=== PATIENT | female | born 1960 | race Caucasian/White ===

== ENCOUNTER 2021-01-13 05:21 | Observation (INO) ==
--- NOTE | 2020-12-23 11:47 | PAT Medication Instructions ---
Medication Instructions Date of Service December 23, 2020 Home Medications atorvastatin 10 mg tablet 10 mg PO QAM citalopram 40 mg tablet 40 mg PO QAM ibuprofen 100 mg tablet 400 mg PO Q8H PRN ASK your surgeon for instructions ibuprofen 100 mg tablet 400 mg PO Q8H PRN Take morning of surgery With a small sip of water, OTHERWISE NOTHING TO EAT OR DRINK AFTER MIDNIGHT: atorvastatin 10 mg tablet 10 mg PO QAM citalopram 40 mg tablet 40 mg PO QAM Other Notes If you have any questions please call us at [phone] or [phone] or [phone] or [phone]
--- NOTE | 2020-12-24 15:40 | Anesthesiology Consultation ---
Date of Service December 24, 2020 Assessment & Plan (1) Encounter for pre-operative examination: Chart Review Chart Review: Acceptable Risk for Surgery (pending surgeon ordered PCP clearance and preop Covid testing results ) and Patient seen in Pre Admission Testing Awaiting surgeon ordered PCP clearance 01/06/21 Per PAT appt on 12/24/20, patient denies any recent travel. No known Covid positive contacts or Covid related symptoms. No known Covid infection in the past 90 days. Pt is fully vaccinated for Covid. Preop Covid testing scheduled 01/11/21= will await results. Educated on importance of self quarantining, social distancing and wearing mask in public both for the patient after Covid testing done Teaching & Discussion Pre-Anesthesia Teaching/Discussion Notes: Instructed NPO after midnight before surgery,except medications with 15 cc of water. Medication instructions provided according to the PAT guidelines. History Surgery Operation Date: 01/13/21 07:00 Proposed Procedures p Right Total Knee Arthroplasty - Lucas Farias MD Height/Weight Height: 5 ft 4 in Weight: 108 kg Allergies Allergy/AdvReac Type Severity Reaction Status Date / Time Sulfa (Sulfonamide Allergy Mild Rash Verified 12/23/20 07:45 Antibiotics) Medications Home Medications Medication Instructions Recorded Confirmed Last Taken atorvastatin 10 mg tablet 10 mg PO QAM 12/23/20 12/23/20 Unknown citalopram 40 mg tablet 40 mg PO QAM 12/23/20 12/23/20 Unknown ibuprofen 100 mg tablet 400 mg PO Q8H PRN 12/23/20 12/23/20 Unknown Past Medical History Medical History Arthritis Depression History of kidney stones NO INTERVENTIONS No current issues Hyperlipidemia Sleep apnea CPAP Exercise / Class Metabolic Activity II 4-5 Yardwork/Stairs/Walk up hill (one flight stairs - no chest pain or SOB ) Past Family History Family History Other No significant family history Past Surgical History Surgical History Family history of reaction to anesthesia MOTHER-SLOW TO WAKE UP History of colonoscopy History of tonsillectomy and adenoidectomy [place] teeth removed Past Anesthesia History No Hx of Anesthesia Complications and No Family Hx of Anesthesia Complications (with exception to mother- slow to wake- just groggy- no reintubuatin or ICU stay ) History of PONV No Hx of PONV and No Hx of Motion Sickness Social History Smoking Status: Never smoker Hx Alcohol Use: Yes alcohol intake frequency: holidays/special occasions only Hx Substance Use: No substance use type: does not use Review of Systems Patient denies chest pain, shortness of breath, dyspnea on exertion, reflux, cough, wheezing, palpitations. No hx of seizures, stroke, MA. No hx of blood clots or blood transfusions Physical Exam Vital Signs VITALS BP 130/80 P 72 TEMP 99.0 SP02 96% RESP 16 Constitutional no acute distress ENMT Mouth: no TMJ clicking Thyromental Distance: > or= 3.5 Finger Breadths Mallampati Class: II Neck neck extension not limited Respiratory normal respiratory effort; no respiratory distress Auscultation: lungs clear to auscultation bilaterally; no wheezes Cardiovascular Rate/Rhythm: regular rate and regular rhythm Heart Sounds: no murmur Vessels: no carotid bruit Musculoskeletal Spine: no pain with cervical ROM Extremities: extremities normal to inspection Psychiatric Orientation: alert Lab Results Anesthesia Preop Results Results Anesthesia Widget: WBC 5.55 K/uL (4.8-10.8) 12/24/20 Hgb 11.6 g/dL (12.0-16.0) L 12/24/20 Hct 35.0 % (37-47) L 12/24/20 Plt 268 K/uL (130-400) 12/24/20 Na 139 mmol/L (136-145) 12/24/20 K 4.1 mmol/L (3.5-5.1) 12/24/20 Cl 108 mmol/L (98-107) H 12/24/20 CO2 26 mmol/L (21-32) 12/24/20 BUN 15 mg/dl (7-18) 12/24/20 Creat 0.78 mg/dl (0.6-1.2) 12/24/20 Glucose Level 99 mg/dl (70-99) 12/24/20 PT 10.1 Seconds (9.0-12.0) 12/24/20 PTT 26.9 Seconds (21.0-31.0) 12/24/20 INR 1.0 (0.9-1.1) 12/24/20 Urine Color Yellow 12/24/20 Urine Appearance Clear (Clear) 12/24/20 Urine pH 5.5 (4.5-7.5) 12/24/20 Urine Specific [place] 1.020 (1.000-1.030) 12/24/20 Urine Protein Negative (Negative) 12/24/20 Urine Glucose (UA) Negative (Negative) 12/24/20 Urine Ketones Negative (Negative) 12/24/20 Urine Blood Negative (Negative) 12/24/20 Urine Nitrite Negative (Negative) 12/24/20 Urine Bilirubin Negative (Negative) 12/24/20 Urine Urobilinogen Negative (Negative) 12/24/20 Urine Leukocyte Esterase Negative (Negative) 12/24/20 Blood Type O Positive 12/24/20 Antibody Screen NEGATIVE 12/24/20 Lab Comments: Will send labs to PCP to address during upcoming PCP appt; did inform surgeon's office of anemia Testing Electrocardiogram Date: 12/24/20 Findings: + NSR @ (64bpm) Normal EKG per cardio. Chest X-Ray Date: 12/24/20 Borderline enlargement of cardiac silhouette which may be accentuated by the low lung volumes. Otherwise, no acute process within the chest (Will forward to PCP office)
--- NOTE | 2020-12-31 10:41 | History & Physical Report ---
Date of Service December 31, 2020 Assessment & Plan (1) Right knee DJD: Plan: Postoperative prescriptions for Percocet and Coumadin will be provided at discharge from the hospital. Anticipate discharge to home with home health services. She already has access to a walker. She has an appointment to see her PCP for medical clearance next week. Preoperative lab work, EKG, and chest x-ray were ordered today. She will meet with PAT today. The patient is aware of the COVID-19 risks associated with surgery. She is currently asymptomatic of any COVID-19 symptoms. She will obtain nasal swab testing 2 days prior to surgery. PDMP was checked and there are no concerning findings. History of Present Illness Chief Complaint: Right knee pain Primary Care Provider: NO PCP This 60-year-old female presents for her preoperative history and physical. She is scheduled to undergo a right knee total knee arthroplasty on 01/13/2021. The patient has had right knee pain for several years. It has become worse with time. She previously used steroid shots and viscosupplementation injections with reasonable relief. Over the last 6 months, they have not helped. She is now getting night pain that is keeping her from sleep. She denies any numbness or tingling. No catching or locking. She does note some bowing of her knee. Pain is worse with weightbearing. It is affecting her ADLs. She has also tried oral pain medication as well as activity modification without lasting improvement. Preoperative imaging has been obtained. Allergies Allergy/AdvReac Type Severity Reaction Status Date / Time Sulfa (Sulfonamide Allergy Mild Rash Verified 12/23/20 07:45 Antibiotics) Home Medications Medication Instructions Recorded Confirmed Type atorvastatin 10 mg tablet 10 mg PO QAM 12/23/20 12/23/20 History citalopram 40 mg tablet 40 mg PO QAM 12/23/20 12/23/20 History ibuprofen 100 mg tablet 400 mg PO Q8H PRN 12/23/20 12/23/20 History Past Med/Surg History Medical History Arthritis Depression History of kidney stones NO INTERVENTIONS No current issues Hyperlipidemia Sleep apnea CPAP Surgical History Family history of reaction to anesthesia MOTHER-SLOW TO WAKE UP History of colonoscopy History of tonsillectomy and adenoidectomy [place] teeth removed Family History Other No significant family history Social History Smoking Status: Never smoker Second Hand Exposure: No; Hx Alcohol Use: Yes Hx Substance Use: No Preferred Language: Kazakh Pocket Machine Operator Required: No Beliefs That Will Affect Care: None Current Living Situation: Spouse Feels Safe at Home: Yes Assistive Devices: CPAP and Glasses Review of Systems Review of Systems: All systems reviewed & are unremarkable except as noted in HPI & below Physical Exam Physical Exam: Vitals: Height 156 cm, weight 108 kilograms, BMI 44.5, temperature 36.4, BP 156/78, pulse 95, O2 sat 98% on room air. General: Well-developed, well-nourished middle-aged white female in no acute distress. Sitting in a chair. Alert and oriented. Skin: Warm and dry with good turgor. No rashes or lesions. No ecchymosis or erythema. HEENT: Normocephalic, atraumatic. Eyes: PERRLA, EOMI. Nares patent bilaterally without turbinate enlargement. Oropharynx without erythema or exud ate, no lesions noted. Uvula midline, oral mucosa moist. Fair dentition. Fillings and caps are noted. Heart: RRR, no MGR. Lungs: Clear to auscultation bilaterally, no crackles, rhonchi or wheezing, good air movement. Abdomen: Obese, bowel sounds present x4, soft, nontender. No organomegaly. No masses. Musculoskeletal: Right knee evaluation reveals slight varus stance. She lacks just a few degrees of terminal extension. Flexion to greater than 110 degrees. Strength is 5/5 with fair quad tone. No defect in the patellar tendon or quadriceps tendon. Stable collateral ligaments. Ambulating today with a mildly antalgic gait. She has focal discomfort with palpation over the medial joint line. No lateral joint line discomfort with palpation today. There is palpable crepitus with motion. Neurologic: Gross sensation is intact across both lower extremities by soft touch. Peripheral pulses are 2+. Results & Data Results & Data ([facility]) Diagnostic Findings Radiographic imaging previously obtained shows end-stage DJD, worst in the medial compartment. Periarticular osteophytes, subchondral sclerosis, and joint space narrowing are all present.
[2021-01-13] MEDS ORDERED: ceFAZolin 2000MG 2,000 MG/15 ML SYR IV SCH (06:00)
[2021-01-13] MEDS ORDERED: LR 500ML BOLUS, THEN 15ML/HR IV SCH (06:00)
[2021-01-13] MEDS ORDERED: ROPIVACAINE 0.5% HCL/PF 150 MG, BUPIVACAINE 0.75% MPF 20 ML, EPINEPHrine 0.15 MG, Ketor... INFIL SCH (06:00)
[2021-01-13] MEDS ORDERED: TRANEXAMIC ACID 1,000 MG **IV Pre-op IV SCH (06:00)
[2021-01-13] MEDS ORDERED: LR 60ML/HR IV SCH (06:00)
--- NOTE | 2021-01-13 06:03 | History & Physical Bridge Note ---
Date of Service January 13, 2021 History & Physical Bridge Note I have examined the patient, reviewed the History & Physical and in the interval since the performance of the History & Physical I have noted the following changes of clinical significance:consent obtained/site verified/covid screen negative. no changes noted
[2021-01-13] MEDS ORDERED: EPINEPHrine INJ 1 MG/ML AMP ONE (06:23)
[2021-01-13] MEDS ORDERED: BUPIVACAINE 0.5 % 5 MG/1 ML PF 10ML VIAL ONE (06:24)
[2021-01-13] MEDS ORDERED: BUPIVACAINE 0.25% 30 ML VIAL ONE ×2 (06:24→06:26)
[2021-01-13] MEDS ORDERED: ORTHO JOINT ANESTHETIC ONE (06:34)
[2021-01-13] MEDS ORDERED: MIDAZOLAM HCL 1 MG/ML 2ML VIAL ONE (06:40)
[2021-01-13] MEDS ORDERED: fentaNYL citrate 100 MCG/2 ML VIAL ONE (06:40)
[2021-01-13] MEDS ORDERED: ONDANSETRON INJ 2 MG/ML 2 ML VIAL IV PRN ×2 (06:48→10:28)
[2021-01-13] MEDS ORDERED: ATROPINE SULFATE 0.1 MG/ML 10ML SYR IV PRN (06:48)
[2021-01-13] MEDS ORDERED: fentaNYL citrate 100 MCG/2 ML VIAL IV PRN (06:48)
[2021-01-13] MEDS ORDERED: ePHEDrine sulfate 50 MG/ML AMP IV PRN (06:48)
[2021-01-13] MEDS ORDERED: HYDROmorphone INJ 2 MG/ML SYR/VIAL IV PRN (06:48)
[2021-01-13] MEDS ORDERED: ONDANSETRON INJ 2 MG/ML 2 ML VIAL ONE (07:24)
[2021-01-13] MEDS ORDERED: PROPOFOL IV EMULSION 10 MG/ML 20 ML VIAL IV ONE (07:24)
--- NOTE | 2021-01-13 08:41 | Operative Report ---
Post Operative Report Pre & Post Diagnosis Operation Date: 01/13/21 07:00 Pre-Op Diagnosis: Right Knee Osteoarthritis Post-Op Diagnosis: Right Knee Osteoarthritis I identified the patient and participated in the time-out.: Yes Procedure Operation Date: 01/13/21 07:00 Actual Procedures p Right Total Knee Arthroplasty, Cemented(Right) - Lucas Farias MD Surgeon MIKE Farias MD Automatic Lathe Setter Dieter/Emma WALSH Estimated Blood Loss 40 Findings Consistent with Post-Op Diagnosis see operative report Specimens see operative report Drains none Complications none Disposition Accompanied Patient To Recovery: Yes Indications This 60-year-old female presented to the office with complaints of persisting right knee pain. She had tried conservative care measures without improvement. She elected to proceed with surgical intervention after being educated about potential risks and outcomes. Preoperative imaging was obtained. Description of Procedure Patient was administered a spinal anesthetic and then taken to the operating room where she was given sedation. She was prepped and draped in the usual sterile fashion. Please see Dr. Farias's operative report for specifics of the procedure. I was present for the entire case from initial patient positioning through final wound closure. Assistance was provided in tissue retraction, hemostasis, trial implant placement, final implant placement, and final wound closure. Patient was taken to the recovery room in satisfactory condition. I attest to the content of the Intraoperative Record and any orders documented therein. Any exceptions are noted below.
--- NOTE | 2021-01-13 08:44 | Operative Report ---
Post Operative Report Pre & Post Diagnosis Operation Date: 01/13/21 07:00 Pre-Op Diagnosis: Right Knee Osteoarthritis Post-Op Diagnosis: Right Knee Osteoarthritis I identified the patient and participated in the time-out.: Yes Procedure Operation Date: 01/13/21 07:00 Actual Procedures p Right Total Knee Arthroplasty, Cemented(Right) - Lucas Farias MD Surgeon W MD Dinora Inspector Shells Dieter/Emma WALSH Estimated Blood Loss 40 Findings Consistent with Post-Op Diagnosis see Dr Farias note Specimens no specimens Description of Procedure see Dr. Farias note I attest to the content of the Intraoperative Record and any orders documented therein. Any exceptions are noted below.
--- NOTE | 2021-01-13 09:36 | Operative Report (OR) ---
DATE OF PROCEDURE: 01/13/2021 SURGEON: Lucas Farias MD. PANEL BUILDER: Cisco Garcias MD. SECOND LOIN TRIMMER: Jacky Carter PA-C. PREOPERATIVE DIAGNOSIS: Osteoarthritis with flexion varus deformity, right knee. POSTOPERATIVE DIAGNOSIS: Osteoarthritis with flexion varus deformity, right knee. OPERATION PERFORMED: Cemented right total knee replacement. SUMMARY OF IMPLANTS: Size 3 right femur, size 3 mobile bearing tray, size 3 x 10 mm posterior crucia te substituting insert, 38 patella, 2 bags of [place] G cement. ESTIMATED BLOOD LOSS: 40 mL. CRYSTALLOID: Per anesthesia. PATHOLOGY: Pending on bone. DVT prophylaxis per protocol. PERIOPERATIVE SITUATION: Medically cleared female with intractable knee pain. Understands the risks and consequences, please see consent and wants to proceed with surgical treatment, total knee repla cement on the right. DESCRIPTION OF PROCEDURE: The patient was appropriately identified, site verified, consent verified. Antibiotics were confirmed as being given. The right lower extremity was prepped and draped in usu al routine fashion. Tourniquet was inflated to 300 mmHg after exsanguination of the limb with a rubb er Esmarch bandage for a total of 45 minutes. Midline exposure was utilized. Parapatellar arthrotom y performed. Synovectomy completed, osteophytes resected. Distal femur entered. Distal femur then resected 14 mm, proximal tibia 4 mm, the extension gap was excellent. The femur was sized to a 3, an d appropriate cutting block applied. The anterior, posterior, condylar and chamfer cuts were made. Flexion gap was checked, it was good. Some minor soft tissue debridement performed and then the post erior capsular injection made. Box cut was then made, and a size 3 fit well. The tibia was then bro ached and reamed to a size 3, and a 10 mm spacer placed and it was stable in all planes including mid range flexion. Patella tracked well. Patella was resected leaving 15 mm. A 38 button fit extremel y well. It tracked well. The rest of the Orthomix was then injected. All trial implants were then removed. The wound irrigated with Betadine Pulsavac, and then the permanent cemented in position, ti talita, femur, and patella in that sequence. After 12 minutes, the tourniquet deflated. Minor bleeding points were controlled with electrocautery. After 14 minutes, the knee was then inspected. The tri al spacer removed. No cement removal required. The wound was irrigated and the permanent liner seat ed. The knee reduced and then the knee closed at 40 degrees of flexion using #2 Vicryl, 2-0 Vicryl a nd stainless steel clips. Appropriate dressing applied. The patient was transferred to [facility] in satisfactory condition, having tolerated the procedure well. Job ID: [id number]
--- NOTE | 2021-01-13 09:50 | XRay Report ---
TWO VIEWS RIGHT KNEE CLINICAL HISTORY: Postoperative examination. FINDINGS: AP and crosstable lateral portable views of the right knee are obtained. A right knee arthr oplasty is in near anatomic alignment. There has been undersurface remodeling of the patella. No acut e fracture is seen. There are expected postoperative changes around the knee including skin clips, so ft tissue edema, and subcutaneous gas. IMPRESSION: Expected postoperative changes status post right knee arthroplasty. No acute fracture is seen. ACT 112: Negative or not required by law. Electronically signed by: Rodrigo Cooper M.D. 01/13/2021 9:49 AM
[2021-01-13] MEDS ORDERED: HYDROmorphone INJ 0.5 MG/0.5 ML SYR IV PRN (10:28)
[2021-01-13] MEDS ORDERED: bisacodyL 10 MG SUPP PR PRN (10:28)
[2021-01-13] MEDS ORDERED: NALOXONE HCL 0.4 MG/1 ML VIAL/CARP IV PRN (10:28)
[2021-01-13] MEDS ORDERED: oxyCODONE HCL IR 5 MG TAB (IMMEDIATE RELEASE) PO PRN (10:28)
[2021-01-13] MEDS ORDERED: diphenhydrAMINE 50 MG/ML VIAL IV PRN (10:28)
[2021-01-13] MEDS ORDERED: MAGNESIUM HYDROXIDE SUSP 30 ML UDC PO PRN (10:28)
[2021-01-13] MEDS ORDERED: METOCLOPRAMIDE HCL INJ 5 MG/ML 2 ML VIAL IV PRN (10:28)
[2021-01-13] MEDS ORDERED: SODIUM CHLORIDE 0.9% 1000ML 1,000 ML IV SCH (10:28)
[2021-01-13] MEDS ORDERED: ALUMINUM/MAGNESIUM SUSP 30 ML UDC PO PRN (10:28)
--- NOTE | 2021-01-13 10:28 | Post Operative Brief Note ---
Immediate Post Op Note v1 Date of Surgery January 13, 2021 Pre & Post Diagnosis Operation Date: 01/13/21 07:00 Pre-Op Diagnosis: Right Knee Osteoarthritis Post-Op Diagnosis: Right Knee Osteoarthritis I identified the patient and participated in the time-out.: Yes Procedure Operation Date: 01/13/21 07:00 Actual Procedures p Right Total Knee Arthroplasty, Cemented(Right) - Lucas Farias MD Surgeon Lucas Farias MD Automotive Upholsterer Dieter/Emma WALSH Estimated Blood Loss 40 Findings Consistent with Post-Op Diagnosis
--- NOTE | 2021-01-13 10:57 | Progress Notes ---
DATE OF SERVICE: 01/13/2021 Postop check status post right total knee replacement. The patient did well, has no issues. Vital s igns are stable. She is afebrile. She denies chest pain, shortness of breath, fever, chills, nausea , vomiting or headache. Exam is still limited by her block. Postop x-rays look excellent. ASSESSMENT: Doing well. Continue postoperative care pathway. Discharge home tomorrow if she does w ell overnight. Job ID: [id number]
--- NOTE | 2021-01-13 11:13 | Discharge Summary (DS) ---
DATE OF ADMISSION: 01/13/2021 DATE OF DISCHARGE: If she does well overnight, 01/14/2021. CHIEF COMPLAINT: Right knee pain. HISTORY OF PRESENT ILLNESS: The patient underwent elective right total knee replacement. HOSPITAL COURSE: Has been uneventful. PAST MEDICAL HISTORY: Remarkable for arthritis, depression, kidney stones, hyperlipidemia, sleep field producer ea, uses CPAP. PREADMISSION MEDICATIONS: Include atorvastatin 10 mg q.a.m., citalopram 40 mg q.a.m., p.r.n. ibuprof en. ALLERGIES: SHE IS ALLERGIC TO SULFA. PAST SURGICAL HISTORY: Remarkable for colonoscopies, tonsillectomies, wisdom teeth. SOCIAL HISTORY: Reveals she does not smoke. Alcohol social only. Speaks Latvian. Lives with the spo use. Uses CPAP and glasses. REVIEW OF SYSTEMS: Noncontributory. Postoperative x-rays look excellent. ASSESSMENT: Doing well status post right total knee replacement. Continue postoperative care pathwa y. Discharge tomorrow if she does well overnight. Deep venous thrombosis prophylaxis per protocol. Job ID: [id number]
--- NOTE | 2021-01-13 11:27 | Anesthesiology Progress Note ---
Date of Service January 13, 2021 Anesthesia Post Procedure Vital Signs Vital Signs: Temp Pulse Pulse Pulse Resp BP Pulse Ox 01/13/21 10:25 36.7 C 66 18 132/74 98 01/13/21 10:10 66 20 137/56 L 92 01/13/21 10:00 64 20 123/58 L 94 01/13/21 09:49 36.6 C 64 19 132/56 L 94 01/13/21 09:40 63 19 137/61 93 01/13/21 09:35 59 L 19 128/65 95 01/13/21 09:25 74 14 118/75 96 01/13/21 09:15 64 20 134/55 L 93 01/13/21 09:05 65 17 131/77 98 01/13/21 08:55 68 18 122/60 95 01/13/21 08:45 66 21 127/57 L 100 01/13/21 08:38 36 C L 72 14 128/48 L 97 01/13/21 05:50 37.1 C 65 18 150/55 H 97 Pain Intensity Bilateral Knee: Pain Intensity: 1 Transfer of Care Handoff Completed per policy Notes Mental Status: alert / awake / arousable and participated in evaluation Patient Amnestic to Procedure: Yes Nausea / Vomiting: adequately controlled Pain: adequately controlled Airway Patency, RR, SpO2: stable & adequate BP & HR: stable & adequate Hydration State: stable & adequate Anesthetic Complications: no major complications apparent and Pt Satisfied with anesthetic care
[2021-01-13] MEDS: DOCUSATE SODIUM 100 MG CAP PO SCH ×2 (12:57→21:23)
[2021-01-13] MEDS: MULTIVITAMIN TAB PO SCH (12:57)
[2021-01-13] MEDS: ATORVASTATIN 10 MG TAB PO SCH (12:58)
[2021-01-13] MEDS: CITALOPRAM 40 MG TAB PO SCH (12:58)
[2021-01-13] MEDS: KETOROLAC 30 MG/ML VIAL IV SCH ×2 (12:59→18:26)
[2021-01-13] MEDS: ORTHO WARFARIN NOMOGRAM SCH (14:07)
[2021-01-13] MEDS: ACETAMINOPHEN 500 MG TAB PO SCH ×2 (14:26→21:23)
[2021-01-13] MEDS ORDERED: TRANEXAMIC ACID / 0.7% NACL 1,000 MG/100 ML BAG IV SCH (15:00)
[2021-01-13] MEDS ORDERED: WARFARIN SOD 5 MG TAB PO ONE (16:00)
[2021-01-13] MEDS: ceFAZolin 2000MG 2,000 MG/15 ML SYR IV SCH (17:44)
[2021-01-13] MEDS: ASCORBIC ACID 500 MG TAB PO SCH (17:45)
[2021-01-13] MEDS: FERROUS GLUCONATE 324 MG TAB PO SCH (17:46)
[2021-01-13] MEDS ORDERED: SENNA 8.6 MG TAB PO SCH (21:00)
[2021-01-14] MEDS: ceFAZolin 2000MG 2,000 MG/15 ML SYR IV SCH (00:48)
[2021-01-14] MEDS: KETOROLAC 30 MG/ML VIAL IV SCH ×2 (00:48→05:34)
[2021-01-14] MEDS: ACETAMINOPHEN 500 MG TAB PO SCH (05:35)
[2021-01-14 06:27] LABS: Hematocrit (blood only) 32.5 % (37-47); Hemoglobin 10.7 g/dL (12.0-16.0); Mean Corpuscular Hemoglobin 30.2 pg (25-34); Mean Corpuscular Hgb Conc 32.9 g/dL (32-36); Mean Corpuscular Volume 91.8 fL (80-100); Mean Platelet Volume 10.9 fL (7.4-10.4); Platelet Count 259 K/uL (130-400); RDW Standard Deviation 44.2 fL (36.4-46.3); Red Blood Count 3.54 M/uL (4.2-5.4); White Blood Count 11.04 K/uL (4.8-10.8)
[2021-01-14 06:39] LABS: Prothrombin Time 10.4 Seconds (9.0-12.0)
[2021-01-14 06:53] LABS: BUN Creatinine Ratio 17.6 (10-20); Calcium 8.8 mg/dl (8.5-10.1); Creatinine Clr Calc Pharmacy 75.6 ml/min; Est GFR (African American) 76.3 ml/min; Est GFR (Non-African American) 65.9 ml/min; Potassium 3.9 mmol/L (3.5-5.1)
[2021-01-14] MEDS ORDERED: dexAMETHasone 10 MG in SYRINGE 0 ML IV SCH (08:00)
--- NOTE | 2021-01-14 08:56 | Progress Notes ---
SUBJECTIVE: Postop check, postoperative day #1, status post right total knee replacement. The patie nt is doing well, has no issues. She denies any chest pain, shortness of breath, fever, chills, naus ea, vomiting or headache. OBJECTIVE: VITAL SIGNS: Stable. She is afebrile. Neurovascular check femoral sciatic nerve is normal. Hematocrit stable at 32.5. LABORATORY DATA: INR 1.0. ASSESSMENT: Doing well. Discharged to home today. Coumadin 4 mg. Check a repeat INR on Monday. C ase management needs to see. Job ID: [id number]
--- NOTE | 2021-01-14 09:11 | Orthopedic Progress Note ---
Date of Service January 14, 2021 Assessment & Plan (1) Status post total right knee replacement using cement: Plan: Patient's dressing was changed this morning by me. OLGA hose were reapplied. She should keep this in place over the weekend, and may have home nursing change as needed on Monday. Ice and elevate the leg frequently to reduce pain and swelling. Continue ambulating using the walker Continue gentle motion several times per day Prescriptions for Coumadin and Percocet have been sent to her [facility] pharmacy. Written discharge instructions have been provided. Follow-up in the office in 2 weeks as scheduled for staple removal. Admission and Anticipated Discharge Date Admission Date: January 13, 2021 Subjective Patient is seen in her room this morning. She denies any discomfort at this point. She states she feels good. No numbness or tingling. She denies any chest pain, shortness of breath, nausea, vomiting, or abdominal pain. She has been out of bed to use the bathroom. She feels ready to go home. No other complaints. Review of Systems Review of Systems: Unchanged from yesterday. Physical Exam Physical Exam: General: Well-developed, well-nourished, middle-aged female, in no acute distress. Sitting in bed. Alert and oriented. Conversive. Skin: Warm and dry. No rashes. Postsurgical dressing is in place. Upon removal, there is scant drainage on her dressings. Whitney are intact. Wound edges are well approximated. She has no active bleeding. Expected postoperative edema. No ecchymosis. Musculoskeletal: Patient has intact motor function to her right leg. She is able to perform a straight leg raise. Full terminal extension. Flexion to 40 degrees easily. Intact motor function of her ankle. Neurologic: Gross sensation is intact across the right leg by soft touch. Peripheral pulses are 2+. Results & Data ([facility]) Vital Signs (Past 12 Hours) Vital Signs Temp Pulse Resp BP Pulse Ox 01/14/21 07:29 36.5 C 56 L 16 129/71 94 01/14/21 03:20 36.6 C 66 18 107/61 96 01/13/21 22:22 36.7 C 58 L 16 92/48 L 94 Laboratory Results Labs this morning show WBCs of 11.0. H&H of 10.7 and 32.5. Platelets 259,000. INR 1.0. Sodium 136, potassium 3.9, chloride 104, BUN 16, creatinine 0.93. Glucose 123.
[2021-01-14] MEDS: DOCUSATE SODIUM 100 MG CAP PO SCH (09:32)
[2021-01-14] MEDS: FERROUS GLUCONATE 324 MG TAB PO SCH (09:32)
[2021-01-14] MEDS: ATORVASTATIN 10 MG TAB PO SCH (09:32)
[2021-01-14] MEDS: ASCORBIC ACID 500 MG TAB PO SCH (09:32)
[2021-01-14] MEDS: CITALOPRAM 40 MG TAB PO SCH (09:33)
[2021-01-14] MEDS: MULTIVITAMIN TAB PO SCH (09:33)
[2021-01-14] MEDS ORDERED: WARFARIN SOD 5 MG TAB PO ONE (11:00)
[2021-01-14] MEDS: ORTHO WARFARIN NOMOGRAM SCH (12:41)
== END 2021-01-14 13:45 | disposition home health service (06) ==
LOC: ASU 05:21 → 3E 05:21

== ENCOUNTER 2023-06-14 06:26 | Observation (INO) ==
--- NOTE | 2023-05-25 11:27 | PAT Medication Instructions ---
Medication Instructions Date of Service May 25, 2023 Home Medications atorvastatin 10 mg tablet 10 mg PO QAM citalopram 40 mg tablet 40 mg PO QAM MEDICATION INSTRUCTIONS: Take morning of surgery With a small sip of water, OTHERWISE NOTHING TO EAT OR DRINK AFTER MIDNIGHT: atorvastatin 10 mg tablet 10 mg PO QAM citalopram 40 mg tablet 40 mg PO QAM Other Notes If you have any questions please call us at [phone] or [phone] or [phone] or [phone]
--- NOTE | 2023-06-05 12:09 | Anesthesiology Consultation ---
Date of Service June 05, 2023 Assessment & Plan (1) Encounter for pre-operative examination: - Infectious disease screening: Per assessment on 06/05/23: No known infectious disease contacts or current infectious disease symptoms (no infectious disease symptoms in past 10 days). No noted recent Covid positive test result. - Outpatient joint assessment: Pt currently scheduled for inpatient pathway. If surgeon requests review for outpatient joint pathway, patient is not recommended candidate for outpatient joint program from anesthesia standpoint based on available information. - S/P Right TKA (01/13/21): SAB at [facility] + regional at [facility] - Patient acceptable risk for surgery pending surgeon-ordered PCP preop evaluation (Tahmina KHAN/rosibel Cooney already done 05/30). Chart Review Chart Review: Patient seen in Pre Admission Testing Teaching & Discussion Pre-Anesthesia Teaching/Discussion Notes: Instructed NPO after midnight before surgery,except medications with 15 cc of water. Medication instructions provided according to the PAT guidelines. p History Surgery Operation Date: 06/14/23 08:50 Proposed Procedures p Left Total Knee Arthroplasty - Lucas Farias MD Height/Weight Height: 5 ft 4 in Weight: 113.5 kg Allergies Allergy/AdvReac Type Severity Reaction Status Date / Time Sulfa (Sulfonamide Allergy Mild Rash Verified 05/24/23 16:34 Antibiotics) Medications Home Medications Medication Instructions Recorded Confirmed Last Taken atorvastatin 10 mg tablet 10 mg PO QAM 12/23/20 05/24/23 01/12/21 08:00 citalopram 40 mg tablet 40 mg PO QAM 12/23/20 05/24/23 01/12/21 08:00 Past Medical History Medical History Arthritis History of kidney stones Depression Hyperlipidemia Sleep apnea CPAP (compliant) Exercise / Class Metabolic Activity III < 4 Walking/Shop/Light housework (one FS (no CP, mild SOB)) Past Family History Family History Mother Slow to wake up after anesthesia Other No significant family history Past Surgical History Surgical History History of total right knee replacement Right TKA (01/13/21): SAB at L3[facility] + regional at [facility] History of colonoscopy [place] teeth removed History of tonsillectomy and adenoidectomy Past Anesthesia History No Hx of Anesthesia Complications * Mother- Slow to wake History of PONV No Hx of PONV and No Hx of Motion Sickness Social History Smoking Status: Never smoker Do You Dip or Chew Tobacco: No Hx Alcohol Use: Yes alcohol intake frequency: holidays/special occasions only Hx Substance Use: No substance use type: does not use Review of Systems Patient denies chest pain, shortness of breath, fever, chills, cough, wheezing, palpitations. Physical Exam Vital Signs VITALS BP 132/82 P 63 TEMP 97.8 SP02 97%RA RESP 18 PHYSICAL Full cervical extension range of motion. Full TMJ range of motion. TMD 4 finger breaths Mallampati Score 3 Dentition: intact, + crowns Lungs: clear throughout to auscultation Cardiac: regular rate and rhythm, no murmurs noted Spine: normal Carotid arteries: negative bruit Extremities: no LE edema Thick neck Lab Results Anesthesia Preop Results Results Anesthesia Widget: WBC 5.02 K/ul (4.8-10.8) 06/05/23 Hgb 12.4 g/dl (12.0-16.0) 06/05/23 Hct 38.2 % (37.0-47.0) 06/05/23 Plt 237 K/uL (130-400) 06/05/23 Na 136 mmol/L (136-145) 06/05/23 K 4.5 mmol/L (3.5-5.1) 06/05/23 Cl 103 mmol/L (98-107) 06/05/23 CO2 27 mmol/L (21-32) 06/05/23 BUN 13 mg/dl (6-23) 06/05/23 Creat 0.87 mg/dl (0.6-1.2) 06/05/23 Glucose Level 95 mg/dl (70-99(Fasting)) 06/05/23 PT 10.6 Seconds (9.0-12.0) 06/05/23 PTT 27 Seconds (21-31) 06/05/23 INR 1.0 (0.9-1.1) 06/05/23 Urine Color Yellow 06/05/23 Urine Appearance Clear (Clear) 06/05/23 Urine pH 7.0 (4.5-7.5) 06/05/23 Urine Specific [place] 1.006 (1.000-1.030) 06/05/23 Urine Protein Negative (Negative) 06/05/23 Urine Glucose (UA) Negative (Negative) 06/05/23 Urine Ketones Negative (Negative) 06/05/23 Urine Blood Negative (Negative) 06/05/23 Urine Nitrite Negative (Negative) 06/05/23 Urine Bilirubin Negative (Negative) 06/05/23 Urine Urobilinogen Negative (Negative) 06/05/23 Urine Leukocyte Esterase Negative (Negative) 06/05/23 Blood Type O Positive 06/05/23 Antibody Screen NEGATIVE 06/05/23 Testing Electrocardiogram Date: 06/05/23 Findings: + NSR @ (61) Chest X-Ray Date: 06/05/23 FINDINGS: No lines and tubes are seen. The cardiomediastinal silhouette is normal. The lungs are clear. No evidence of pleural effusion or pneumothorax. IMPRESSION: No acute chest disease.
[~2023-06-14 06:26] MED LIST: LR 500ML BOLUS, THEN 15ML/HR IV SCH; LR 60ML/HR IV SCH; ROPIVACAINE 0.5% HCL/PF 246 MG, Ketorolac (*for OR use only*) 30 MG, EPINEPHrine 30MG/3... INFIL SCH; TRANEXAMIC ACID 1,000 MG **IV Pre-op IV SCH
[2023-06-14] MEDS ORDERED: ROPIVACAINE 0.5% 5 MG/ML 30 ML VIAL ONE (06:28)
[2023-06-14] MEDS ORDERED: BUPIVACAINE 0.5 % 5 MG/1 ML PF 10ML VIAL ONE (06:28)
--- NOTE | 2023-06-14 06:31 | History & Physical Bridge Note ---
Date of Service June 14, 2023 History & Physical Bridge Note I have examined the patient, reviewed the History & Physical and in the interval since the performance of the History & Physical I have noted the following changes of clinical significance: sire and consent verified.no changes noted
--- OUTSIDE RECORDS SUMMARY | 2023-06-14 06:33 | External Medical Summary | Continuity of Care Document ---
Author Name Unknown Organization [facility] [address] [place] [address] [address] [place] [phone] Encounter [facility] [id number] Date(s): 06/05/23 - 06/05/23 [facility] [address] [facility] [address] [facility] Sports Medicine [address] [place] [id number] Encounter Diagnosis Degenerative arthritis of left knee(Discharge Diagnosis) - 06/05/23 Discharge Disposition: Home or Self Care Attending Physician: JILLIAN Carter, Jacky Kearns Referring Physician: MD Dinora, Lucas Connolly Allergies, Adverse Reactions, Alerts Substance Reaction Severity Status sulfa drugs rash Active Medications amoxicillin 500 mg oral capsule Start: 09/28/22 13:08:00 EDT, See Instructions, Disp# 4 cap, Refills: 2, TAKE 4 CAPSULES BY MOUTH ONE HOUR BEFORE DENTAL PROCEDURES DIRECTED, Pharmacy: [id number] Start Date: 09/28/22 Status: Ordered atorvastatin 10 mg oral tablet TAKE 1 TABLET BY MOUTH EVERY DAY Start Date: 12/02/19 Status: Ordered citalopram 40 mg oral tablet TAKE 1 TABLET BY MOUTH EVERY DAY Start Date: 12/02/19 Status: Ordered Euflexxa 10 mg/mL intra-articular solution Start: 07/01/20 12:36:00 EST, 20 mg =, intra-articular, q7days, Disp# 12 mL, Refills: 0, 1 prefilled syringe to each knee bilaterally 1x weekly for 3 weeks. dx code M17.0, Note to Pharmacy: Please ship to doctors office; [address] [facility], [address]... Start Date: 07/01/20 Status: Ordered Mental Status 06/05/23 Barriers to Learning one year None evide nt Mandatory Health Literacy Documentation Yes Health Literacy Communication Barriers N ever Primary Language [place] Island[place] Problem List Condition Confirmation Course Effective Dates Status H ealth Status Informant Status post total right knee replacement Confirmed Active Bilateral primary osteoarthritis of knee Confirmed Active Diagnosis Diagnosis Type Effective Dates Health Status Clinical Service Informant Degenerative arthritis of left knee Discharge Diagnosis 06/05/23 Procedures Procedure Date Related Diagnosis Body Site Status Tonsil 1 Completed 1tonsil and addenoid surgery Vital Signs Most recent to oldest [Reference Range]: 1 Height 164 cm (06/05/23 10:56 AM) Patient Weight 110 kg (06/05/23 10:56 AM) Body Mass Index 40.9 kg/m2 (06/05/23 10:56 AM) Temperature [36.5-37.9 DegC] 36.6 DegC (06/05/23 10:56 AM) Heart Rate 80 bpm (06/05/23 10:56 AM) Blood Pressure 140/80mmHg (06/05/23 10:56 AM) Cuff Pulse Pressure 60 mmHg (06/05/23 10:56 AM) Social History Social History Type Response Smoking Status Never smoked cigaret kevon Sex Female Pre-OP H & P * JILLIAN Carter, Jacky D: PERFORM, MODIFY, MODIFY, MODIFY Event Display: Pre-OP H & P Authored Date: [id number] PRE-OPERATIVE HISTORY AND PHYSICAL Name: HIRAL CASTELLON Patient Number: [id number] : 1960 Date of Service: 06/05/2023 PRE-OP Diagnosis: Left knee DJD Planned Procedure: Left total knee arthroplasty Chief Complaint: Left knee pain History of Present Illness (including history relevant to procedure): This 63-year-old female presents today for her preoperative history and physical. She is scheduled to undergo a left knee total knee arthroplasty on 06/14/2023. She has had a longstanding history of left knee pain. Symptoms have been ongoing for years. They have become worse with time. She has tried viscosupplementation, activity modification, and physical therapy without lasting improvement. She denies any numbness or tingling. There is occasional night pain. Occasional swelling. She notes some loss of motion for flexion. Pain is worse with weightbearing. It is affecting her ADLs. She has a history of previous right totalknee arthroplasty in December 2020 and has done very well with it. She elects to proceed with the same on the left. Preoperative imaging has been obtained. Review Of Systems: A total of 10 systems were reviewed and are significant only for below stated conditions. FAMILY HISTORY: Noncontributory. SOCIAL HISTORY: The patient is . No tobacco use, no ETOH use. 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 Past Medical History: Problems: Status post total right knee replacement Bilateral primary osteoarthritis of knee Anxiety Sleep apnea Use of CPAP Elevated cholesterol Obesity. Procedure History Procedure Procedure Date Comments Tonsil Right total knee arthroplasty December 2020 - tonsil and addenoid surgery Allergies and Sensitivities: sulfa drugs(rash) Current Home Meds: (Last Updated 06/05 10:40) amoxicillin (amoxicillin 500 mg oral capsule) TAKE 4 CAPSULES BY MOUTH ONE HOUR BEFORE DENTAL PROCEDURES DIRECTED atorvastatin (atorvastatin 10 mg oral tablet) TAKE 1 TABLET BY MOUTH EVERY DAY citalopram (citalopram 40 mg oral tablet) TAKE 1 TABLET BY MOUTH EVERY DAY sodium hyaluronate (Euflexxa 10 mg/mL intra-articular solution) 20 mg intra- articular q7days 1 prefilled syringe to each knee bilaterally 1x weekly for 3 weeks.dx code M17.0 Vitals: Last Updated 06/05/23 10:56 Weights: Last Updated 06/05/23 10:56 Date Temp Pulse BP RR SpO2 FIO2 Date Wt(kg) Wt(lb) 06/05 10:56 36.6 80 140/80 98 06/05 10:56 110.0 242 06/05 10:56 110.0 242 24 Hr Tmax: 36.6 at 06/05 10:56 Initial Wt: 06/05 110.0 kg 242 lb Physical Exam: (relevant to the procedure, including heart and lung evaluation) General: Well-developed, well-nourished, middle-aged female, in no acute distress. Sitting on the bed. Alert and oriented. HEENT: Normocephalic, atraumatic. Eyes PERRLA, EOMI. Nares patent bilaterally without nasal drainage. Oropharynx is moist. No lesions noted. Fair dentition with fillings noted. Neck: No JVD. Cardiac: Heart RRR. No MGR. Peripheral pulses are 2+. Lungs: Clear to auscultation bilaterally. No crackles, rhonchi, or wheezing. Good air movement. Abdomen: Obese. Bowel sounds present x 4. Soft nontender. No organomegaly. No masses. Extremities: Left knee evaluation reveals no obvious deformity. She has a slight valgus stance. Shehas full terminal extension. Flexion to around 95 degrees. Strength is 5/5 with fair quad tone. No palpable defect in the patellar tendon or quadriceps tendon. She has stable collateral ligaments. There is focal discomfort with palpation over the medial and lateral joint lines. Crepitus is palpablewith motion. She is ambulatory today with a mildly antalgic gait. Neuro: Gross sensation is intact across both lower extremities by soft touch. Skin: Warm and dry with good turgor. No rashes. No ecchymosis or erythema. No intra-articular effusion. Studies of radiology results (relevant to the procedure): Radiographic imaging previously obtained of the left knee shows end-stage DJD with periarticular osteophytes, subchondral sclerosis, and joint space narrowing. ASSESSMENT: Left knee DJD Plan: Approximately 25 minutes was spent with the patient reviewing operative procedure, postoperative recovery, physical therapy requirements, and medication use. Postoperative prescriptions for Percocet and Eliquis will be sent to her pharmacy upon discharge from the hospital. Anticipate discharge to home with home health services. She will attend PAT today for preoperative lab work, EKG, and chest x-ray. She has an appointment to see her PCP for medical clearance. She already has access to [facility] cane. She is aware of the COVID-19 risks associated with surgery. She is currently asymptomatic of any COVID-19 symptoms. PDMP was checked and there are no concerning findings. Postoperative follow-up appointment has been made with me on at 1:30 PM This dictation has been completed using [employer] text voice recognition software. Grammatical errors, omissions, insertions, and misspellings may be present due to the limitations of the software. Electronic Signature on File Electronically Reviewed/Signed by: Jacky Carter PA-C Author Signature Dt/Tm:06/07/2023 01:41 PM Division of Sports Medicine Electronically Reviewed/Signed by: MD Pavel Menjivarigner Signature Dt/Tm: 06/07/2023 01:58 PM National Account Representative for Clinical Affairs, [facility] [place] Professor in Orthopaedics [place], [facility] CDS
[2023-06-14] MEDS ORDERED: TRANEXAMIC ACID / 0.7% NACL 1,000 MG/100 ML BAG IV STA (06:40)
[2023-06-14] MEDS ORDERED: MIDAZOLAM HCL 1 MG/ML 2ML VIAL ONE (07:51)
[2023-06-14] MEDS ORDERED: PROPOFOL IV EMULSION 10 MG/ML 20 ML VIAL IV ONE ×4 (07:52→10:49)
[2023-06-14] MEDS ORDERED: ATROPINE SULFATE 0.1 MG/ML 10ML SYR IV PRN (08:40)
[2023-06-14] MEDS ORDERED: fentaNYL citrate PF 100 MCG/2 ML VIAL IV PRN (08:40)
[2023-06-14] MEDS ORDERED: ePHEDrine sulfate 50 MG/ML AMP IV PRN (08:40)
[2023-06-14] MEDS ORDERED: ONDANSETRON INJ 2 MG/ML 2 ML VIAL IV PRN ×2 (08:40→12:47)
[2023-06-14] MEDS ORDERED: fentaNYL citrate PF 100 MCG/2 ML VIAL ONE (09:19)
[2023-06-14] MEDS ORDERED: GLYCOPYRROLATE 0.2 MG/ML VIAL ONE (09:20)
[2023-06-14] MEDS ORDERED: ONDANSETRON INJ 2 MG/ML 2 ML VIAL ONE (09:21)
--- NOTE | 2023-06-14 11:01 | Post Operative Brief Note ---
Immediate Post Op Note v1 Date of Surgery June 14, 2023 Pre & Post Diagnosis Operation Date: 06/14/23 08:50 <No data on this case meets the specified criteria> Preop diagnosis osteoarthritis varus flexion deformity left knee postop diagnosis same operation performed a cemented left total knee replacement I identified the patient and participated in the time-out.: Yes Procedure Operation Date: 06/14/23 08:50 <No data on this case meets the specified criteria> Cemented left total knee replacement Surgeon Lucas Farias MD Gauge And Weigh Machine Adjuster JOHN/Héctor Estimated Blood Loss 150 Findings Consistent with Post-Op Diagnosis Severe medial and patellofemoral osteoarthritis varus flexion deformity Fluids See anesthesia report Complications None
--- NOTE | 2023-06-14 11:05 | Operative Report ---
Post Operative Report Procedure Date: June 14, 2023 Pre & Post Diagnosis: [Osteoarthritis left knee with varus flexion deformity preop diagnosis Postop diagnosis same] Time Out: I identified the patient and participated in the time-out. Procedure: Cemented left total knee replacement [] Surgeon: Dinora [] Government Program Manager: [JOHN/Héctor] Estimated Blood Loss: [Tourniquet malfunction 125 cc total tourniquet time was roughly 40 minutes but it was not working well] Findings: [] Severe osteoarthritis varus flexion deformity Specimens: Bone pathology Description of Procedure: [After the patient was appropriate notified site verify consent provide antibiotics confirmed to be given TXA confirmed to be given the left lower extremity was prepped and draped use routine fashion. Tourniquet plated to 275 mmHg for total of roughly 40 minutes despite using a 42 cm tourniquet was still not functioning well and was let down and the case was done without it. Parapatellar throbbing performed synovectomy completed osteophytes resected. Distal femur entered cruciates resected tibia subluxated menisci resected. Distal femur resected 10 mm proximal tibia 4 mm the extension gap was excellent. The femur was sized anywhere between a 3 and a 5+ it was decided to go with a 4 appropriate cutting block applied anterior posterior condylar and chamfer cuts made no issues. Flexion gap was then checked and was good Ortho mix was injected about the knee the box cut was then made. The size 4 trial fit well the lug holes were made. Tibia once it was subluxated and the resection verified a size 3 was noted to be good and then the healed impaction that occurred. The trial was then carried out with 5 and a 6 mm spacer the 6 gave us a little bit more midrange flexion stability without losing extension. Should be mentioned that the flexion gap was checked prior to putting the box cut on the femur. Patella was then everted and it was resected freehand leaving about 15 mm of thickness in the 35 button seated after the drill holes made. It tracked well. Ortho mix was then injected all about the knee the trial implants were then removed the knee was then soaked in Betadine for 2 minutes and then irrigated and then the permanent cemented in position tibia femur and patella in that order at 14 minutes the wound was inspected there was no major bleeding there is no cement removal required once the trial spacer was removed the wound was irrigated 1 final time with the Pulsavac Betadine the permanent liner seated the knee then reduced and closed at 40 degrees of flexion using #2 Vicryl 2-0 Vicryl and standstill clips appropriate dressing applied the patient transferred recovery in satisfactory condition he tolerated the procedure well. Summary of implants DePuy ATT UNE implants size 4 narrow femur size 3 tibia size 35 patella 4 x 6 mm insert posterior cruciate substituting 2 bags of Pal[place]os G cement. EBL was roughly 125 cc crystalloid per anesthesia bone pathology pending DVT prophylaxis with Eliquis starting 24 hours postop note not before.] Attestation: I attest to the content of the Intraoperative Record and any orders documented therein. Any exceptions are noted below.
--- NOTE | 2023-06-14 11:08 | Discharge Summary ---
Date of Service June 15, 2023 Admission HPI Per Admitting Provider Severe pain left knee underwent left total knee replacement cemented with DePuy implants. Principal Diagnosis Osteoarthritis left knee Discharge Data Allergies Allergy/AdvReac Type Severity Reaction Status Date / Time Sulfa (Sulfonamide Allergy Mild Rash Verified 06/14/23 07:07 Antibiotics) Vaccinations None Consultations None Procedures Performed Operation Date: 06/14/23 08:50 Actual Procedures p Left Total Knee Arthroplasty(Left) - Lucas Farias MD Ordered Studies 06/14/23 05:00 US - OR guided needle placemen Routine Hospital Course (1) Status post left knee replacement: Care plan possible discharge tomorrow does well overnight Total Time Total Time Spent Total Time Spent (In Minutes): 5 minutes Discharge Plan Discharge Items Reason For Visit: Left Knee Degenerative Joint Disease Discharge Diagnosis: Same Condition on Discharge: Good Activity: Per Instructions section Lifting: Wait until after follow-up appointment Bathing: Keep incision dry Sexual Activity: Wait until after follow-up appointment Exercise/Sports: Wait until after follow-up appointment Call non-emergency contact if: your temperature is above 101.5, your wound has increased redness, your wound has increased drainage and your wound pain has increased Follow-up/Referrals: Jacky Carter PA-C [Physician Assistant Manager Retail] - 06/29/23 1:30 pm Chayo Young M.D. [Outside Practitioners] - Diet: Regular Addtl Attending Provider Instructions: New Medicine: * You will likely be taking one or more of these medications: 1. Percocet - Take, as directed, when you need it, every four to six hours to control your pain. 2. Iron Sulfate - Take 1x each day for the month after surgery to help you replace the blood lost during surgery. 3. Eliquis - Thins your blood to lessen the chance of forming a blood clot. * The most common side effects of pain medicine and iron are nausea and constipation. If nausea or constipation is too much of a problem or if you have any questions about your new medicines or doses, call [facility] at . We will try to help you manage these issues. "VERY IMPORTANT TO READ AND REVIEW" Blood Clots and Blood Thinning Medicine: * You are given Eliquis during the immediate post-operative period to lessen the risk of blood clots forming in your legs and/or lungs. It is usually given for 4 weeks after Pain: * The immediate post-operative period after knee replacement surgery is often quite painful. * You are given a prescription for pain medicine. You should take it, as directed, when you need it, especially before physical therapy and before going to bed. Pain that interferes with sleep is very common and can last several months. * You will likely need pain medicine for the first four to six weeks. It will not stop all of the pain. The pain will lessen and as you feel better, you may change to milder pain medicine such as Tylenol. * The most common side effects of pain medicine are nausea and constipation, so don't take more than you need. Physical Therapy: * You will have physical therapy two or three times each week for four to six weeks after your surgery in order to regain your knee range of motion and to retrain your knee to work properly. * It is just as important to make sure you are getting your knee perfectly straight as it is to regain your knee bend. * Taking a pain pill an hour before therapy can help you have a more productive and comfortable therapy session if needed. Home Exercise: * You were shown a series of exercises (heel props, heel slides, etc.) in the hospital. Do these exercises three to four times each day including the exercises you were shown in physical therapy. Walking: * Get up and walk several times each day. For the first four weeks, try not to stand or walk for more than one hour at a time. If you do stand or walk for more than one hour, you will not hurt anything, but your knee and leg will likely swell. * As you feel comfortable, you may change from the walker or crutches to a cane and then to independent walking. SELF CARE INSTRUCTIONS AFTER TOTAL KNEE REPLACEMENT A. You may need to continue a physical therapy program after discharge from the hospital. There are several options available to you. Your doctor will assist you in selecting the best one for you. 1. An out-patient facility 2 to 3 times a week for therapy or home therapy. 2. Continue working on all exercises taught to you in the hospital. Your goals should be to increase bending of your knee to 90 degrees and beyond and to fully straighten your knee. B. You may progress at your own pace from walking with a walker or crutches to a cane; then to no assistive devices. C. Make walking a part of your daily routine. Be up as much as comfortable with rest periods throughout the day. Rest with leg elevation is very important. Use the ice wrap frequently for the first 3-4 weeks. D. There are no restrictions on activities. You may ride in a car, shop, participate in washateria attendant and all social activities. E. Wear the long elastic stockings (OLGA hose) 20 hours a day for six weeks after surgery. They can be removed several times a day for laundering and for a shower. F. Do not place a pillow behind your knee when resting. A pillow at your ankle is okay. VERY IMPORTANT TO READ AND REVIEW A. Take Eliquis (blood thinning medication) as directed by your doctor. B. There are a few signs you need to watch for after you are home. Call [facility] if you notice any of the followin. Increased severe knee pain. Some pain is expected especially when you exercise. 2. Increased swelling in your leg or knee; pain or swelling of the calf muscle in either lower leg. 3. Any fluid drainage from the incision. 4. Shortness of breath or chest pain. C. Please call [facility] at if you have any concerns or questions about your operation or recovery. The doctor or his nurse will return your call promptly. D. You must take antibiotics before dental work, bladder, bowel or other surgery. Call the office to obtain a prescription at least 2 days prior to your appointment. * CALL IF INCREASED PAIN, REDNESS, DRAINAGE OR FEVER GREATER THAT 101. * Sutures should be removed 12-14 days after surgery unless you are on chronic steroids, then it will be 14-18 days after surgery. Call your doctor if: * Temperature above 101 degrees F. * Pain not relieved by pain medicine ordered. * Increased drainage or redness from incision. * Notify your doctor with any questions or concerns. Ice and elevate the leg frequently to reduce pain and swelling Practice performing a straight leg raise several times per day. Use your knee immobilizer today and tomorrow when out of bed. Do not sleep in it. It can be discontinued entirely on Monday morning. Leave your dressing in place over the weekend. It can be changed on Monday by Home Health if needed for soiling Start your Eliquis this evening with dinner. Take it 2 times per day for the next 4 weeks Pending Studies at Discharge: Yes (Bone pathology) Stand-Alone Forms: [facility] Medications and DC Order Prescriptions: No Action atorvastatin 10 mg Tablet 10 mg PO QAM citalopram [Celexa] 40 mg Tablet 40 mg PO QAM Admission Data Admit Date/Time: 06/14/23 11:19 Attending Provider: Lucas Farias Admit Provider: Lucas Farias Primary Care Provider: Juana Argueta
--- NOTE | 2023-06-14 11:08 | Orthopedic Progress Note ---
Date of Service June 14, 2023 Orthopedic Progress Note Underwent left total knee replacement cemented. She is doing well denies chest pain shortness of breath fever chills nausea vomiting or headache. Vital signs are stable she is afebrile. Neurovascular check limited by spinal. X-rays pending. Attempt to contact was unsuccessful left a voicemail on his phone he did not answer his phone. marketing services coordinator to assess care plan to go home with services. Tomorrow if she does well overnight.
[2023-06-14] MEDS ORDERED: VANCOMYCIN CONSULT ACTIVE PRN (11:12)
[2023-06-14] MEDS ORDERED: VANCOMYCIN HCL 2,250 MG in SODIUM CHLORIDE 0.9% 500 ML IV ONE (11:15)
--- NOTE | 2023-06-14 11:15 | Operative Report ---
Post Operative Report Pre & Post Diagnosis Operation Date: 06/14/23 08:50 Pre-Op Diagnosis: Left Knee Degenerative Joint Disease Post-Op Diagnosis: Left Knee Degenerative Joint Disease I identified the patient and participated in the time-out.: Yes Procedure Operation Date: 06/14/23 08:50 Actual Procedures p Left Total Knee Arthroplasty(Left) - Lucas Farias MD Surgeon Lucas Farias MD Call Center Rn JOHN/Héctor Estimated Blood Loss 150 Findings Consistent with Post-Op Diagnosis Same as postoperative diagnosis Specimens The resected portions of the femur, tibia & patella. Description of Procedure Please see detailed operative note. I attest to the content of the Intraoperative Record and any orders documented therein. Any exceptions are noted below.
--- NOTE | 2023-06-14 11:34 | XRay Report ---
LEFT KNEE 2 VIEWS History: Left total knee arthroplasty. Degenerative arthritis. Postop. FINDINGS: The patient is status post a left total knee arthroplasty. The hardware is intact. No fract ure or dislocation. Skin kody are in place. IMPRESSION: Left total knee arthroplasty. No evidence for hardware complication. ACT 112: Negative or not required by law. Electronically signed by: Flaco Fairbanks M.D. 06/14/2023 11:33 AM
--- NOTE | 2023-06-14 11:47 | Anesthesiology Progress Note ---
Date of Service June 14, 2023 Anesthesia Post Procedure Vital Signs Vital Signs: Temp Pulse Pulse Resp BP Pulse Ox O2 Del Method 06/14/23 11:40 98.8 F 66 19 100/55 L 93 Room Air 06/14/23 11:30 67 18 108/54 L 99 Oxymask 06/14/23 11:20 64 19 118/62 100 Oxymask 06/14/23 11:11 97.7 F 71 18 115/51 L 99 Oxymask 06/14/23 06:52 98.4 F 66 20 181/67 H 98 Room Air O2 Flow Rate 06/14/23 11:40 06/14/23 11:30 2 06/14/23 11:20 9 06/14/23 11:11 9 06/14/23 06:52 Transfer of Care Handoff Completed per policy Notes Mental Status: alert / awake / arousable and participated in evaluation Patient Amnestic to Procedure: Yes Nausea / Vomiting: adequately controlled Pain: adequately controlled Airway Patency, RR, SpO2: stable & adequate BP & HR: stable & adequate Hydration State: stable & adequate Neuraxial Anesthesia: was administered and sensory block is resolving Anesthetic Complications: no major complications apparent and Pt Satisfied with anesthetic care
[2023-06-14] MEDS ORDERED: bisacodyL 10 MG SUPP PR PRN (12:47)
[2023-06-14] MEDS ORDERED: HYDROmorphone INJ 0.5 MG/0.5 ML SYR IV PRN (12:47)
[2023-06-14] MEDS ORDERED: MAGNESIUM HYDROXIDE SUSP 30 ML UDC PO PRN (12:47)
[2023-06-14] MEDS ORDERED: NALOXONE HCL 0.4 MG/1 ML VIAL/CARP IV PRN (12:47)
[2023-06-14] MEDS ORDERED: HYDROmorphone INJ 1 MG/ML SYRINGE IV PRN (12:47)
[2023-06-14] MEDS ORDERED: diphenhydrAMINE 50 MG/ML VIAL IV PRN (12:47)
[2023-06-14] MEDS ORDERED: SODIUM CHLORIDE 0.9% 1,000 ML IV SCH (12:47)
[2023-06-14] MEDS: KETOROLAC TROMETHAMINE 15 MG/ML VIAL IV SCH ×2 (13:37→18:38)
[2023-06-14] MEDS: ACETAMINOPHEN 500 MG TAB PO SCH ×2 (14:45→21:15)
[2023-06-14] MEDS: oxyCODONE HCL IR 5 MG TAB (IMMEDIATE RELEASE) PO PRN (17:42)
[2023-06-14] MEDS: ceFAZolin 2000MG 2,000 MG/15 ML SYR IV SCH (17:47)
--- NOTE | 2023-06-14 17:57 | Orthopedic Progress Note ---
Date of Service June 14, 2023 Assessment & Plan Admission and Anticipated Discharge Date Admission Date: June 14, 2023 Orthopedic Progress Note Postop check evening. Doing well has no chest pain shortness of breath fever chills nausea vomiting or headache. Vital signs are stable she is afebrile. Neurovascular check femoral sciatic nerve is normal. Wound dressing clean dry and intact. Postop x-rays look excellent. Assessment doing well status post total knee replacement. Continue care pathway discharged home tomorrow for PT OT dressing change. Start Eliquis 24 hours postop sometime tomorrow morning. Start after 11 AM
[2023-06-14] MEDS: DOCUSATE SODIUM 100 MG CAP PO SCH (19:32)
[2023-06-14] MEDS ORDERED: SENNA 8.6 MG TAB PO SCH (21:00)
[2023-06-15] MEDS: ceFAZolin 2000MG 2,000 MG/15 ML SYR IV SCH (00:02)
[2023-06-15] MEDS: KETOROLAC TROMETHAMINE 15 MG/ML VIAL IV SCH ×2 (00:03→05:36)
[2023-06-15] MEDS: oxyCODONE HCL IR 5 MG TAB (IMMEDIATE RELEASE) PO PRN ×2 (04:11→08:15)
[2023-06-15] MEDS: ACETAMINOPHEN 500 MG TAB PO SCH (05:36)
--- NOTE | 2023-06-15 06:19 | Orthopedic Progress Note ---
Date of Service June 15, 2023 Assessment & Plan Admission and Anticipated Discharge Date Admission Date: June 14, 2023 Orthopedic Progress Note Did well overnight. A.m. labs pending. Discharge home today after dressing change and PT.
[2023-06-15 06:37] LABS: Hematocrit (blood only) 26.5 % (37.0-47.0); Hemoglobin 8.6 g/dl (12.0-16.0); Mean Corpuscular Hemoglobin 29.6 pg (25.0-34.0); Mean Corpuscular Hgb Conc 32.5 g/dL (32.0-36.0); Mean Corpuscular Volume 91.1 fL (80.0-100.0); Mean Platelet Volume 11.3 fL (9.4-12.4); Platelet Count 169 K/uL (130-400); RDW Coefficient of Variation 13.1 % (11.5-14.5); RDW Standard Deviation 43.8 fL (36.4-46.3); Red Blood Count 2.91 M/uL (4.20-5.40); White Blood Count 6.65 K/ul (4.8-10.8)
[2023-06-15 06:51] LABS: BUN Creatinine Ratio 17.2 (10-20); Calcium 8.1 mg/dl (8.6-10.3); Creatinine Clr Calc Pharmacy 75.7 ml/min; Est GFR (African American) 74.7 ml/min; Est GFR (Non-African American) 64.5 ml/min; Potassium 4.4 mmol/L (3.5-5.1)
[2023-06-15] MEDS ORDERED: dexAMETHasone 4 MG TAB PO SCH (08:00)
[2023-06-15] MEDS: DOCUSATE SODIUM 100 MG CAP PO SCH (08:16)
--- NOTE | 2023-06-15 08:32 | Orthopedic Progress Note ---
Date of Service June 15, 2023 Assessment & Plan (1) Status post left knee replacement: Plan: Patient is postop day 1 status post left total knee arthroplasty with Dr. Sampson she is doing well as expected. At this time we discussed continuing with weightbearing as tolerated with walker. She will see physical therapy this a.m. and if deemed safe she may be discharged home with home health services. She will continue with oral pain medications. PDMP was queried no red flags prescription was sent to pharmacy of patient's choice. She will be on Eliquis 2.5 twice daily x 4 weeks for DVT prophylaxis. She was advised not to take any NSAIDs while taking Eliquis may continue with Tylenol not to exceed 3000 mg daily for pain control if needed in addition to percocet. She will keep the dressing in place and dry. She was advised home health will come in and monitor her incision if any concerns to contact the office. She has a follow-up scheduled with aJcky Carter on 06/29/2023 for staple removal. Patient was advised on continuing with the knee immobilizer and may discharge Monday. She will wear the knee immobilizer while ambulating. She will continue using the OLGA hose and extra pair was provided to patient today. Patient had ample time to ask questions. Patient verbalized understanding and is in agreement with plan. Admission and Anticipated Discharge Date Admission Date: June 14, 2023 Subjective Patient is a 63-year-old status post a left total knee arthroplasty postop day [address] Sampson. She was seen bedside this a.m. She was just finishing breakfast. She is alert and oriented x 3 in good spirits. She states she is doing well her pain is being managed with oral pain meds and rates her pain as 2/10. She denies any chest pain shortness of breath fever chills or calf pain. She does report having a walker at home for use and she offers no other concerns. She does feel she is ready to go home Review of Systems Review of Systems: Please refer to HPI Physical Exam Physical Exam: General: Patient is alert and oriented x 3 pleasant and conversive no acute distress Integumentary/musculoskeletal: Dressing is intact negative for any swelling. This was removed. Negative for any active bleeding dried blood on gauze dressing. Incision is well-approximated with kody. Negative erythema or active bleeding. She does have mild edema in the left lower extremity which is to be anticipated. Negative for any calf pain upon palpation calf is soft and nontender. She is able to extend her knee to approximately -5 degrees and she is able to flex the knee to approximately 60 degrees. She is able to fully dorsiflex and plantarflex ankle. She is able to do a straight leg raise without assistance. Dorsal pedis pulses 2. New dressing was applied consisting of gauze, Kerlix, 2 ABDs followed by another layer of Kerlix and thigh-high OLGA hose applied. Left lower extremity is neurovascularly intact. Results & Data Vital Signs (Past 12 Hours) Vital Signs Temp Pulse Resp BP BP Pulse Ox O2 Del Method 06/15/23 07:09 36.8 C 65 16 102/61 91 Room Air 06/15/23 03:02 36.9 C 69 16 125/62 91 Room Air 06/14/23 23:13 36.5 C 71 16 119/67 92 Room Air Laboratory Results 06/15/23 Range/Units 06:07 WBC 6.65 (4.8-10.8) K/ul RBC 2.91 L (4.20-5.40) M/uL Hgb 8.6 L (12.0-16.0) g/dl Hct 26.5 L (37.0-47.0) % MCV 91.1 (80.0-100.0) fL MCH 29.6 (25.0-34.0) pg MCHC 32.5 (32.0-36.0) g/dL RDW Std Deviation 43.8 (36.4-46.3) fL RDW Coeff of Gasper 13.1 (11.5-14.5) % Plt Count 169 (130-400) K/uL MPV 11.3 (9.4-12.4) fL Sodium 134 L (136-145) mmol/L Potassium 4.4 (3.5-5.1) mmol/L Chloride 103 (98-107) mmol/L Carbon Dioxide 27 (21-32) mmol/L Anion Gap 4 (3-11) BUN 16 (6-23) mg/dl Creatinine 0.93 (0.6-1.2) mg/dl Est Cr Clr Drug Dosing 75.7 ml/min Est GFR ( Amer) 74.7 ml/min Est GFR (Non-Af Amer) 64.5 ml/min BUN/Creatinine Ratio 17.2 (10-20) Glucose 135 H (70-99(Fasting)) mg/dl Calcium 8.1 L (8.6-10.3) mg/dl Diagnostic Findings Knee X-Ray 06/14/23 10:59 LEFT KNEE 2 VIEWS History: Left total knee arthroplasty. Degenerative arthritis. Postop. FINDINGS: The patient is status post a left total knee arthroplasty. The hardware is intact. No fracture or dislocation. Skin kody are in place. IMPRESSION: Left total knee arthroplasty. No evidence for hardware complication. ACT 112: Negative or not required by law. Electronically signed by: Flaco Fairbanks M.D. 06/14/2023 11:33 AM
[2023-06-15] MEDS ORDERED: MULTIVITAMIN TAB PO SCH (09:00)
[2023-06-15] MEDS ORDERED: CITALOPRAM 40 MG TAB PO SCH (09:00)
[2023-06-15] MEDS ORDERED: ATORVASTATIN 10 MG TAB PO SCH (09:00)
[2023-06-15] MEDS ORDERED: APIXABAN 2.5 MG TAB PO SCH (11:15)
== END 2023-06-15 11:38 | disposition home health service (06) ==
LOC: ASU 06:26 → 3E 06:26